=== PATIENT | male | born 1945 | race Hispanic/Latino ===

== ENCOUNTER 2021-04-06 11:09 | Inpatient (IN) | payer OTHER, MEDICARE ==
[~2021-04-06] VITALS: Ht 170.2 cm; Wt 61.1 kg
[2021-04-06] MEDS ORDERED: MORPHINE 4 MG SYG IVP SCH (11:30)
[2021-04-06] MEDS ORDERED: ONDANSETRON 4MG INJ IVP SCH (11:30)
[2021-04-06 11:52] LABS: BASOPHILS % (AUTO) 0.9 % (0.0-5.0); EOSINOPHILS % (AUTO) 2.1 % (0.0-8.0); HEMATOCRIT 27.6 % (42-54); MEAN CORPUSCULAR HEMOGLOBIN 30.1 pg (27.0-33.0); MEAN CORPUSCULAR HGB CONC 32.6 g/dL (32.0-36.0); MEAN CORPUSCULAR VOLUME 92.3 fL (79-99); MONOCYTES % (AUTO) 8.5 % (3.0-13.0); NEUTROPHILS % (AUTO) 69.8 % (40.0-77.0); PLATELET COUNT (AUTO) 197 K/uL (130-400); RED BLOOD CELL COUNT(AUTO) 2.99 MIL/uL (4.50-6.20); WHITE BLOOD COUNT (AUTO) 5.7 K/uL (4.8-10.8)
[2021-04-06 12:06] LABS: CARBON DIOXIDE 27 mmol/L (21-32); CHLORIDE 104 mmol/L (101-111); GLOMERULAR FILTR. RATE CALC 77 mL/min (>60); GLUCOSE,RANDOM 114 mg/dL (70-105); POTASSIUM 4.2 mmol/L (3.5-5.1); SODIUM SERUM 138 mmol/L (136-145); UREA NITROGEN, BLOOD 19 mg/dL (7-18)
[2021-04-06 12:10] LABS: ALANINE AMINOTRANSFERASE 21 U/L (12-78); ALBUMIN 3.6 g/dL (3.5-5.0); ALCOHOL, BLOOD < 3 mg/dL (0-10); ASPARTATE AMINOTRANSFERASE 21 U/L (10-37); BILIRUBIN,TOTAL 0.2 mg/dL (0.2-1.0); TOTAL PROTEIN, SERUM 6.6 g/dL (6.0-8.3)
[2021-04-06] MEDS ORDERED: IOHEXOL 350 MG/ML 100ML INFUS..BTL IV ONE (13:26)
[2021-04-06] MEDS ORDERED: HYDROCODONE/ACETAMINOPHEN 5/325 MG TAB PO PRN (15:00)
[2021-04-06] MEDS ORDERED: ONDANSETRON 4MG INJ IV PRN (15:00)
[2021-04-06] MEDS ORDERED: ACETAMINOPHEN 325 MG TAB PO PRN ×2 (15:00)
[2021-04-06 16:01] LABS: APPEARANCE,URINE Clear (CLEAR); BILIRUBIN,URINE Negative (NEGATIVE); COLOR,URINE Yellow (YELLOW); GLUCOSE, URINE (UA) Negative (NEGATIVE); KETONES,URINE Negative (NEGATIVE); LEUKOCYTE ESTERASE ,URINE Negative (NEGATIVE); NITRATE,URINE Negative (NEGATIVE); OCCULT BLOOD,URINE Negative (NEGATIVE); PROTEIN,URINE Negative (NEGATIVE)
[2021-04-06 16:09] LABS: AMPHET/METH SCREEN,URINE NEGATIVE (NEGATIVE); BARBITURATE SCREEN, URINE NEGATIVE (NEGATIVE); BENZODIAZEPINES SCREEN,URINE NEGATIVE (NEGATIVE); CANNABINOID SCREEN,URINE NEGATIVE (NEGATIVE); COCAINE SCREEN,URINE NEGATIVE (NEGATIVE); OPIATE SCREEN,URINE NEGATIVE (NEGATIVE); PHENCYCLIDINE SCREEN,URINE NEGATIVE (NEGATIVE)
[2021-04-06] MEDS: HYDROMORPHONE 0.5 MG SYG (0.5MG/0.5ML) IV PRN (16:09)
[2021-04-06] MEDS ORDERED: HYDRALAZINE 20MG/ML VIAL IV PRN (19:30)
[2021-04-06 22:30] VITALS: BP 129/64
[2021-04-07] MEDS ORDERED: CARB200T6 PO (00:15)
[2021-04-07] MEDS ORDERED: CELE200C PO (00:15)
[2021-04-07] MEDS ORDERED: LISI40TA9 PO (00:15)
[2021-04-07] MEDS ORDERED: LEVO50CA4 PO (00:15)
[2021-04-07] MEDS: HYDROMORPHONE 0.5 MG SYG (0.5MG/0.5ML) IV PRN (04:07)
[2021-04-07 04:27] VITALS: BP 138/61
[2021-04-07 05:00] LABS: BASOPHILS % (AUTO) 0.9 % (0.0-5.0); EOSINOPHILS % (AUTO) 0.7 % (0.0-8.0); HEMATOCRIT 25.9 % (42-54); LYMPHOCYTES % (AUTO) 12.7 % (21.0-51.0); MEAN CORPUSCULAR HEMOGLOBIN 29.8 pg (27.0-33.0); MEAN CORPUSCULAR HGB CONC 32.4 g/dL (32.0-36.0); MEAN CORPUSCULAR VOLUME 91.8 fL (79-99); MONOCYTES % (AUTO) 14.2 % (3.0-13.0); NEUTROPHILS % (AUTO) 71.2 % (40.0-77.0); PLATELET COUNT (AUTO) 194 K/uL (130-400); RED BLOOD CELL COUNT(AUTO) 2.82 MIL/uL (4.50-6.20); RED CELL DISTRIBUTION WIDTH 16.1 % (11.0-15.5); WHITE BLOOD COUNT (AUTO) 6.7 K/uL (4.8-10.8)
[2021-04-07 05:24] LABS: ALBUMIN 3.3 g/dL (3.5-5.0); BILIRUBIN,TOTAL 0.4 mg/dL (0.2-1.0); CREATININE 0.9 mg/dL (0.5-1.5); POTASSIUM 4.2 mmol/L (3.5-5.1); TOTAL PROTEIN, SERUM 6.5 g/dL (6.0-8.3)
[2021-04-07 08:34] VITALS: BP 135/71
[2021-04-07 10:46] VITALS: BP 137/72
[2021-04-07 12:03] LABS: % IRON SATURATION 10.4 % (30-44)
[2021-04-07] MEDS: PANTOPRAZOLE 40 MG/VIAL IVP SCH (12:16)
[2021-04-07] MEDS: LISINOPRIL 10 MG TABLET PO SCH (12:17)
[2021-04-07] MEDS: CARBAMAZEPINE 200 MG TABLET PO SCH (12:17)
[2021-04-07] MEDS: ENOXAPARIN SODIUM 30 MG/0.3 ML SQ SCH (12:18)
[2021-04-07] MEDS: ACETAMINOPHEN WITH CODEINE 1 TAB TAB PO PRN (16:16)
[2021-04-07 16:38] VITALS: BP 125/57
[2021-04-07 20:00] VITALS: BP 96/53
[2021-04-08] VITALS: BP 122/66
[2021-04-08 04:00] VITALS: BP 140/57
[2021-04-08 05:06] LABS: BASOPHILS % (AUTO) 0.8 % (0.0-5.0); EOSINOPHILS % (AUTO) 1.2 % (0.0-8.0); HEMATOCRIT 25.3 % (42-54); LYMPHOCYTES % (AUTO) 15.2 % (21.0-51.0); MEAN CORPUSCULAR HEMOGLOBIN 29.8 pg (27.0-33.0); MEAN CORPUSCULAR HGB CONC 33.6 g/dL (32.0-36.0); MEAN CORPUSCULAR VOLUME 88.8 fL (79-99); MONOCYTES % (AUTO) 14.7 % (3.0-13.0); NEUTROPHILS % (AUTO) 67.8 % (40.0-77.0); PLATELET COUNT (AUTO) 195 K/uL (130-400); RED BLOOD CELL COUNT(AUTO) 2.85 MIL/uL (4.50-6.20); RED CELL DISTRIBUTION WIDTH 16.3 % (11.0-15.5); WHITE BLOOD COUNT (AUTO) 6.5 K/uL (4.8-10.8)
[2021-04-08] MEDS: LEVOTHYROXINE 50 MCG TABLET PO SCH (05:34)
[2021-04-08 05:35] LABS: CREATININE 0.9 mg/dL (0.5-1.5); POTASSIUM 3.8 mmol/L (3.5-5.1); THYROID STIMULATING HORMONE 18.67 uIU/mL (0.36-3.74)
[2021-04-08 08:34] VITALS: BP 120/59
[2021-04-08] MEDS: LISINOPRIL 10 MG TABLET PO SCH (09:15)
[2021-04-08] MEDS: CARBAMAZEPINE 200 MG TABLET PO SCH (09:16)
[2021-04-08] MEDS: PANTOPRAZOLE 40 MG/VIAL IVP SCH (09:16)
[2021-04-08] MEDS: CALCITONIN 3.7 ML AEROSOL NS SCH (09:16)
[2021-04-08] MEDS: ENOXAPARIN SODIUM 30 MG/0.3 ML SQ SCH (09:17)
[2021-04-08 10:53] VITALS: BP 107/46
[2021-04-08] MEDS: ACETAMINOPHEN WITH CODEINE 1 TAB TAB PO PRN (13:26)
[2021-04-08 16:53] VITALS: BP 97/60
[2021-04-08 20:00] VITALS: BP 113/53
[2021-04-09] VITALS (7 sets, daily range): BP systolic 89–127; BP diastolic 51–79
[2021-04-09 04:58] LABS: EOSINOPHILS % (AUTO) 4.2 % (0.0-8.0); HEMATOCRIT 25.5 % (42-54); LYMPHOCYTES % (AUTO) 26.3 % (21.0-51.0); MEAN CORPUSCULAR HEMOGLOBIN 29.3 pg (27.0-33.0); MEAN CORPUSCULAR HGB CONC 32.2 g/dL (32.0-36.0); MEAN CORPUSCULAR VOLUME 91.1 fL (79-99); MONOCYTES % (AUTO) 16.6 % (3.0-13.0); NEUTROPHILS % (AUTO) 51.5 % (40.0-77.0); PLATELET COUNT (AUTO) 192 K/uL (130-400); RED CELL DISTRIBUTION WIDTH 16.4 % (11.0-15.5); WHITE BLOOD COUNT (AUTO) 5.3 K/uL (4.8-10.8)
[2021-04-09] MEDS: MORPHINE 2 MG SYG IVP PRN ×2 (05:04→19:29)
[2021-04-09] MEDS: LEVOTHYROXINE 50 MCG TABLET PO SCH (05:05)
[2021-04-09 05:16] LABS: ALBUMIN 2.9 g/dL (3.5-5.0); BILIRUBIN,TOTAL 0.3 mg/dL (0.2-1.0); CREATININE 1.3 mg/dL (0.5-1.5); TOTAL PROTEIN, SERUM 6.4 g/dL (6.0-8.3)
[2021-04-09] MEDS ORDERED: LACTULOSE 20 GM/30 ML UDCUP ONE (06:43)
[2021-04-09] MEDS ORDERED: LACTULOSE 20 GM/30 ML UDCUP PO PRN (07:00)
[2021-04-09] MEDS: TAMSULOSIN HCL 0.4 MG CAP.ER.24H PO SCH (08:39)
[2021-04-09] MEDS: PANTOPRAZOLE 40 MG/VIAL IVP SCH (08:39)
[2021-04-09] MEDS: LISINOPRIL 40 MG TABLET PO SCH (08:39)
[2021-04-09] MEDS: CARBAMAZEPINE 200 MG TABLET PO SCH (08:39)
[2021-04-09] MEDS: CALCITONIN 3.7 ML AEROSOL NS SCH (08:40)
[2021-04-09] MEDS: ENOXAPARIN SODIUM 30 MG/0.3 ML SQ SCH (08:41)
[2021-04-09] MEDS ORDERED: LACTULOSE 20 GM/30 ML UDCUP PO SCH (09:00)
[2021-04-09] MEDS: ACETAMINOPHEN WITH CODEINE 1 TAB TAB PO PRN (14:16)
[2021-04-10] VITALS (7 sets, daily range): BP systolic 96–124; BP diastolic 50–65
[2021-04-10 03:39] LABS: HEMATOCRIT 24.6 % (42-54); LYMPHOCYTES % (AUTO) 31.3 % (21.0-51.0); MEAN CORPUSCULAR HEMOGLOBIN 29.6 pg (27.0-33.0); MEAN CORPUSCULAR HGB CONC 32.1 g/dL (32.0-36.0); MEAN CORPUSCULAR VOLUME 92.1 fL (79-99); MONOCYTES % (AUTO) 13.1 % (3.0-13.0); NEUTROPHILS % (AUTO) 50.2 % (40.0-77.0); PLATELET COUNT (AUTO) 201 K/uL (130-400); RED BLOOD CELL COUNT(AUTO) 2.67 MIL/uL (4.50-6.20); RED CELL DISTRIBUTION WIDTH 16.6 % (11.0-15.5)
[2021-04-10 03:56] LABS: ALBUMIN 2.7 g/dL (3.5-5.0); BILIRUBIN,TOTAL 0.2 mg/dL (0.2-1.0); CREATININE 1.2 mg/dL (0.5-1.5); TOTAL PROTEIN, SERUM 6.3 g/dL (6.0-8.3)
[2021-04-10] MEDS: LEVOTHYROXINE 50 MCG TABLET PO SCH (05:21)
[2021-04-10] MEDS: LISINOPRIL 40 MG TABLET PO SCH (09:00)
[2021-04-10] MEDS: PANTOPRAZOLE 40 MG/VIAL IVP SCH (10:12)
[2021-04-10] MEDS: CARBAMAZEPINE 200 MG TABLET PO SCH (10:13)
[2021-04-10] MEDS: TAMSULOSIN HCL 0.4 MG CAP.ER.24H PO SCH (10:13)
[2021-04-10] MEDS: ENOXAPARIN SODIUM 30 MG/0.3 ML SQ SCH (10:13)
[2021-04-10] MEDS: CALCITONIN 3.7 ML AEROSOL NS SCH (10:14)
[2021-04-10 12:28] LABS: RETICULOCYTE % (AUTO) 3.16 % (0.42-2.23)
[2021-04-10] MEDS ORDERED: COMPOUND IV MISC 1 EACH IVSOLN MISC PRN (13:00)
[2021-04-10] MEDS ORDERED: EPOETIN ALFA-EPBX (NON-ESRD) 10,000 UNIT/ML VIAL SQ SCH (15:00)
[2021-04-10] MEDS: DIVALPROEX SODIUM 250 MG TABLET.DR PO SCH (20:11)
[2021-04-10] MEDS: LEVETIRACETAM 250 MG TABLET PO SCH (20:11)
[2021-04-10] MEDS: ACETAMINOPHEN WITH CODEINE 1 TAB TAB PO PRN (20:12)
[2021-04-11 04:00] VITALS: BP 110/56
[2021-04-11] MEDS: LEVOTHYROXINE 50 MCG TABLET PO SCH (06:36)
[2021-04-11] MEDS: ACETAMINOPHEN WITH CODEINE 1 TAB TAB PO PRN ×2 (06:38→13:47)
[2021-04-11 07:59] VITALS: BP 118/53
[2021-04-11] MEDS ORDERED: IRON SUCROSE COMPLEX 500 MG in 0.9% NACL 250ML 250 ML IV SCH (09:00)
[2021-04-11] MEDS: LISINOPRIL 40 MG TABLET PO SCH (09:16)
[2021-04-11] MEDS: LEVETIRACETAM 250 MG TABLET PO SCH (09:16)
[2021-04-11] MEDS: CARBAMAZEPINE 200 MG TABLET PO SCH (09:16)
[2021-04-11] MEDS: PANTOPRAZOLE 40 MG/VIAL IVP SCH (09:16)
[2021-04-11] MEDS: DIVALPROEX SODIUM 250 MG TABLET.DR PO SCH (09:16)
[2021-04-11] MEDS: TAMSULOSIN HCL 0.4 MG CAP.ER.24H PO SCH (09:16)
[2021-04-11] MEDS: CALCITONIN 3.7 ML AEROSOL NS SCH (09:17)
[2021-04-11] MEDS: ENOXAPARIN SODIUM 30 MG/0.3 ML SQ SCH (09:17)
[2021-04-11 10:53] VITALS: BP 116/56
[2021-04-11 15:09] LABS: HEMATOCRIT 23.1 % (42-54); MEAN CORPUSCULAR HEMOGLOBIN 29.9 pg (27.0-33.0); MEAN CORPUSCULAR HGB CONC 32.9 g/dL (32.0-36.0); MEAN CORPUSCULAR VOLUME 90.9 fL (79-99); RED BLOOD CELL COUNT(AUTO) 2.54 MIL/uL (4.50-6.20); RED CELL DISTRIBUTION WIDTH 16.4 % (11.0-15.5); WHITE BLOOD COUNT (AUTO) 5.4 K/uL (4.8-10.8)
[2021-04-11 15:21] LABS: CREATININE 1.1 mg/dL (0.5-1.5); POTASSIUM 4.6 mmol/L (3.5-5.1)
[2021-04-11 16:06] VITALS: BP 109/55
== END 2021-04-11 17:00 | DRG 535 ==
LOC: EDH 11:09 → EDHIP 14:43 → 4AH 22:30
PROVIDERS: ADMIT Hospitalist; ATTEND Hospitalist
DX: S32.592A Other specified fracture of left pubis, initial encounter for closed fracture (principal); I21.A1 Myocardial infarction type 2; S22.039A Unspecified fracture of third thoracic vertebra, initial encounter for closed fracture; S22.049A Unspecified fracture of fourth thoracic vertebra, initial encounter for closed fracture; S22.059A Unspecified fracture of T5-T6 vertebra, initial encounter for closed fracture; S22.079A Unspecified fracture of T9-T10 vertebra, initial encounter for closed fracture; S22.089A Unspecified fracture of T11-T12 vertebra, initial encounter for closed fracture; S32.019A Unspecified fracture of first lumbar vertebra, initial encounter for closed fracture; S32.029A Unspecified fracture of second lumbar vertebra, initial encounter for closed fracture; S00.03XA Contusion of scalp, initial encounter; M47.812 Spondylosis without myelopathy or radiculopathy, cervical region; I10 Essential (primary) hypertension; E78.5 Hyperlipidemia, unspecified; S32.512A Fracture of superior rim of left pubis, initial encounter for closed fracture; E03.9 Hypothyroidism, unspecified; G40.909 Epilepsy, unspecified, not intractable, without status epilepticus; D50.9 Iron deficiency anemia, unspecified; M48.02 Spinal stenosis, cervical region; M47.815 Spondylosis without myelopathy or radiculopathy, thoracolumbar region; V18.4XXA Pedal cycle driver injured in noncollision transport accident in traffic accident, initial encounter; Y93.55 Activity, bike riding; Y92.482 Bike path as the place of occurrence of the external cause; Y99.8 Other external cause status; Z79.899 Other long term (current) drug therapy
CPT/HCPCS: 36415; 70450; 71045; 71250; 72125; 72170; 73060; 74176; 74177; 80048; 80053; 80156; 80305; 81003; 82270; 82550; 82607; 82728; 82746; 83540; 83550; 84443; 84484; 85025; 85027; 85045; 93005; 97039; C9113; G0378; J1170; J1650; J1756; J2270; J2405; J7050; Q9967